=== PATIENT | male | born 1975 | race African-American/Black ===

== ENCOUNTER 2016-08-28 21:24 | Emergency (ER) | payer OTHER ==
[~2016-08-28] VITALS: Ht 172.7 cm; Wt 70.3 kg
[2016-08-29 02:45] VITALS: BP 104/57
== END 2016-08-29 03:30 | disposition home or self-care (01) ==
LOC: EDBD 21:24 → ER 21:31
DX: J01.00 Acute maxillary sinusitis, unspecified (principal); V49.9XXA Car occupant (driver) (passenger) injured in unspecified traffic accident, initial encounter; Y93.89 Activity, other specified; Y99.8 Other external cause status; Y92.89 Other specified places as the place of occurrence of the external cause; Z88.0 Allergy status to penicillin; R42 Dizziness and giddiness
CPT/HCPCS: 70450; 70486